=== PATIENT | male | born 1985 | race Two or more races ===

== ENCOUNTER 2019-03-30 03:01 | Emergency (ER) | payer SELFPAY ==
[~2019-03-30] VITALS: Ht 172.7 cm; Wt 121.8 kg
[2019-03-30 03:11] VITALS: Ht 172.7 cm; Wt 121.8 kg
[2019-03-30 04:24] LABS: microscopic required? NO
[2019-03-30 04:40] LABS: BASOPHIL % 0.5 % (0-2); PLATELET COUNT 292 x10^3mcL (130-400); RED CELL DISTRIBUTION WIDTH 12.8 % (11.5-14.5); UA SPECIFIC GRAVITY <=1.005 (1.005-1.035); urine erythrocyte NEGATIVE (NEGATIVE)
[2019-03-30 04:47] LABS: CALCIUM 8.3 mg/dL (8.5-10.1); CARBON DIOXIDE 26.3 mmol/L (21-32); CHLORIDE SERUM 102 mmol/L (98-107); CREATININE SERUM 0.9 mg/dL (0.7-1.3); GFR1 > 60 mL/min; GLUCOSE SERUM 93 mg/dL (74-106); POTASSIUM SERUM 3.4 mmol/L (3.5-5.1); SODIUM SERUM 137 mmol/L (136-145)
[2019-03-30 04:51] LABS: ALKALINE PHOSPHATASE 120 U/L (46-116); ALT/SGPT 273 U/L (16-63); AST/SGOT 308 U/L (15-37); BILIRUBIN TOTAL 0.4 mg/dL (0.20-1.00); LIPASE 84 IU/L (73-393)
[2019-03-30 04:52] LABS: ALBUMIN 3.1 g/dL (3.4-5.0); TOTAL PROTEIN, SERUM 8.8 g/dL (6.4-8.2)
[2019-03-30 05:51] VITALS: BP 113/63
== END 2019-03-30 05:51 | disposition home or self-care (01) ==
LOC: ED 03:01
PROVIDERS: Emergency Medicine
DX: R10.9 Unspecified abdominal pain (principal); F10.20 Alcohol dependence, uncomplicated
CPT/HCPCS: G0480; J2405; J3010; J3490; J7030

== ENCOUNTER 2019-05-01 01:55 | Emergency (ER) | payer BC ==
[~2019-05-01] VITALS: Ht 172.7 cm; Wt 118.4 kg
[2019-05-01 02:08] VITALS: Ht 172.7 cm; Wt 118.4 kg
[2019-05-01 03:29] VITALS: BP 154/91
== END 2019-05-01 03:29 | disposition home or self-care (01) ==
LOC: ED 01:55
DX: T15.01XA Foreign body in cornea, right eye, initial encounter (principal); Z90.49 Acquired absence of other specified parts of digestive tract; W45.8XXA Other foreign body or object entering through skin, initial encounter; Y93.89 Activity, other specified; Y92.89 Other specified places as the place of occurrence of the external cause; Y99.8 Other external cause status
CPT/HCPCS: 90715